=== PATIENT | female | born 1945 | race Caucasian/White ===

== ENCOUNTER 2024-05-09 14:12 | Outpatient (CLI) | payer MEDICARE, MEDICAID, SELFPAY ==
--- NOTE | 2024-05-09 14:16 | CT_ITS ---
FINAL REPORT TECHNIQUE: Axial images through the chest were performed by computed tomography. This study was performed with techniques to keep radiation doses as low as reasonably achievable, (ALARA). Individualized dose reduction techniques using automated exposure control or adjustment of mA and/or kV according to the patient's size were employed. CLINICAL HISTORY: pulmonary nodule COMPARISON: None FINDINGS: CT CHEST: Small mediastinal lymph nodes are noted, not enlarged by size. There are dense coronary artery calcifications present. There are 2 calcified granulomas present in the right lower lobe. Linear scar is present in the medial right middle lobe. There are several tiny 2 mm nodules in the anterior right middle lobe, which by Fleischner's criteria if the patient is at high risk, a 1 year follow-up is suggested. There is 25 degrees of thoracic scoliosis convex to the patient's right. No pleural or pericardial effusions are noted. Views of the upper abdomen are unremarkable. IMPRESSION: Several tiny 2 mm nodules in the anterior right middle lobe, by Fleischner's criteria if the patient is at high risk, a 1 year follow-up CT is suggested. Dense coronary artery calcifications. Reviewed, Interpreted and Dictated by Angel Coles MD Transcribed by Kamla Shaw Authenticated and [facility]
== END 2024-05-09 23:59 | disposition home or self-care (01) ==
LOC: RAD 14:14
PROVIDERS: PCP Family Medicine; Visit Provider Family Medicine
DX: R91.1 Solitary pulmonary nodule (principal)
CPT/HCPCS: 71250

== ENCOUNTER 2024-05-13 10:03 | Observation (INO) | payer MEDICARE, MEDICAID, SELFPAY ==
[2024-05-13] VITALS (9 sets, daily range): BP systolic 113–155; BP diastolic 46–73; PULSE 54–70; RESP 16–20; TEMP 36.4–37.1; O2SAT 97–100; BMI 24.6
--- NOTE | 2024-05-13 10:12 | CT_ITS ---
PROCEDURE INFORMATION: Exam: CT Cervical Spine Without Contrast Exam date and time: 05/13/2024 11:28 AM Age: 78 years old Clinical indication: Injury or trauma; Fall; Blunt trauma; Additional info: Possible fall/trauma TECHNIQUE: Imaging protocol: Computed tomography of the cervical spine without contrast. Radiation optimization: All CT scans at this facility use at least one of these dose optimization techniques: automated exposure control; mA and/or kV adjustment per patient size (includes targeted exams where dose is matched to clinical indication); or iterative reconstruction. COMPARISON: CT HEAD/BRAIN WO CON 05/13/2024 11:28 AM FINDINGS: Bones/joints: No acute fracture. There is partial straightening of cervical lordosis. There is grade 1 anterolisthesis of C4 on C5 and C7 on T1. There is multilevel advanced degenerative disc disease. There is multilevel spinal canal stenosis most notable at C5-C6 where there is moderate stenosis secondary to disc osteophyte ridging. Lungs: Lung apices are normal. Soft tissues: Unremarkable. IMPRESSION: No acute findings.
--- NOTE | 2024-05-13 10:12 | CT_ITS ---
PROCEDURE INFORMATION: Exam: CT Head Without Contrast Exam date and time: 05/13/2024 11:28 AM Age: 78 years old Clinical indication: Altered mental status/memory loss; Additional info: AMS TECHNIQUE: Imaging protocol: Computed tomography of the head without contrast. Radiation optimization: All CT scans at this facility use at least one of these dose optimization techniques: automated exposure control; mA and/or kV adjustment per patient size (includes targeted exams where dose is matched to clinical indication); or iterative reconstruction. COMPARISON: CT CERVICAL SPINE WO CON 05/13/2024 11:28 AM FINDINGS: Brain: There is diffuse cortical atrophy with disproportionate temporal lobe atrophy. There is mild to moderate small vessel disease. There is no evidence of acute parenchymal hemorrhage, extra-axial collection, or acute infarction. There is no mass effect, midline shift, or downward herniation. Cerebral ventricles: No ventriculomegaly. Paranasal sinuses: Visualized sinuses are unremarkable. No fluid levels. Mastoid air cells: Visualized mastoid air cells are well aerated. Bones: Unremarkable. No acute fracture. Soft tissues: Unremarkable. IMPRESSION: 1. No evidence of acute intracranial process. 2. Ausc-ur-gssbcaox small vessel disease. 3. Disproportionate temporal lobe atrophy.
--- NOTE | 2024-05-13 10:13 | XR_ITS ---
PROCEDURE INFORMATION: Exam: XR Chest Exam date and time: 05/13/2024 11:12 AM Age: 78 years old Clinical indication: Dyspnea TECHNIQUE: Imaging protocol: Radiologic exam of the chest. Views: 1 view. COMPARISON: CT CHEST WO CON 05/09/2024 2:17 PM FINDINGS: Lungs: Calcified granuloma in the right lower lobe, seen to better advantage on previous CT chest. No focal consolidation. Pleural spaces: Unremarkable. No pleural effusion. No pneumothorax. Heart/Mediastinum: Unremarkable. No cardiomegaly. Bones/joints: Unremarkable. IMPRESSION: No acute findings.
[2024-05-13 10:23] LABS: Basophils # 0.1 K/mm3 (0-0.2); Basophils % 1.1 % (0.1-2.0); Eosinophils # 0.1 K/mm3 (0.0-0.4); Hematocrit 43.5 % (37.0-47.0); Lymphocytes # 1.1 K/mm3 (0.7-4.5); Lymphocytes % 23.5 % (10-50); Mean Corpuscular HGB Conc 34.6 g/dL (31.8-35.4); Mean Corpuscular Hemoglobin 30.7 pg (27.0-31.2); Mean Corpuscular Volume 88.7 fl (81-99); Monocytes # 0.4 K/mm3 (0.1-1.0); Monocytes % 7.5 % (1.7-9.3); Neutrophils # 3.1 K/mm3 (1.8-7.8); Platelet Count 126 K/mm3 (142-424); Red Blood Count 4.91 M/mm3 (4.20-5.40); Red Cell Distribution Width 13.2 % (11.5-17.5); White Blood Count 4.7 K/mm3 (4.8-10.8)
--- NOTE | 2024-05-13 10:23 | ED_ITS ---
Discharge Plan Disposition Patient Disposition: Admitted Clinical Impressions Clinical Impression: Acute encephalopathy Discharge ED Provider: Pernell Monge General Adult HPI General Chief complaint: Altered Mental Status Stated complaint: fall Time Seen by Provider: 05/13/24 10:05 History of Present Illness HPI narrative: Patient is a 78-year-old female presenting today from [facility] for altered mental status and being found down. No definitive fall that we are aware of no definitive evidence of trauma from historical standpoint. From a EMS they [facility] that the [facility] stated that she recently was started on Ativan but we do not know exactly how much or when this was initiated. 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 No other symptoms were reported from EMS and history is otherwise significant limited secondary to patient's altered mental status. Related Data Home Medications ?Medication ?Instructions ?Recorded ?Confirmed acetaminophen 325 mg tablet 650 mg PO Q6HP PRN Mild Pain 05/13/24 05/13/24 (Scale Score 1-4) aspirin 325 mg tablet 325 mg PO DAILY 05/13/24 05/13/24 ergocalciferol (vitamin D2) 1,250 1,250 mcg PO TU 05/13/24 05/13/24 mcg (50,000 unit) capsule levothyroxine 50 mcg tablet 50 mcg PO DAILYDM 05/13/24 05/13/24 lorazepam 1 mg tablet 1 mg PO DAILY 05/13/24 05/13/24 ondansetron 4 mg disintegrating 4 mg PO Q6HP PRN Nausea And 05/13/24 05/13/24 tablet Vomiting quetiapine 100 mg tablet (Seroquel) 100 mg PO HS 05/13/24 05/13/24 quetiapine 25 mg tablet 25 mg PO DAILY 05/13/24 05/13/24 quetiapine 50 mg tablet (Seroquel) 50 mg PO 1400 05/13/24 05/13/24 sennosides 8.6 mg tablet (Senna 17.2 mg PO HSP PRN constipation 05/13/24 05/13/24 Laxative) Previous Rx's ?Medication ?Instructions ?Recorded amlodipine 10 mg tablet 10 mg PO DAILY #90 tabs 03/22/24 donepezil 10 mg tablet 10 mg PO HS #90 tabs 03/22/24 escitalopram oxalate 10 mg tablet 10 mg PO DAILY #90 tabs 03/22/24 (Lexapro) memantine 5 mg tablet 5 mg PO HS #90 tabs 03/22/24 Allergies Allergy/AdvReac Type Severity Reaction Status Date / Time Penicillins Allergy Unknown Verified 04/25/24 12:[address] [facility] Disclaimer: The information contained in this section may have been updated after the patient was seen, as this information can be updated by other users. Medical History Localized swelling, mass and lump, left lower limb Gastro-esophageal reflux disease without esophagitis Depression Anxiety Chronic hepatitis C Alzheimer disease Hyperparathyroidism Vitamin D deficiency Edentulous Dementia Coronary artery disease History of tobacco use Hypertension Hypothyroid Hypercalcemia Pulmonary nodule 1 cm or greater in diameter Surgical History Presence of coronary angioplasty implant and graft History of coronary artery stent placement History of tonsillectomy History of delivery History of cholecystectomy Social History (Updated 05/13/24 @ 13:34 by Germania Betancur, RN) Smoking Status: Former smoker alcohol intake: former current occupational status: unemployed Other Medical History Have you received the Pneumonia Vaccine: No ROS Obtained: Yes All systems reviewed & no additional complaints except as documented Physical Exam General General appearance: lethargic Head Head exam: atraumatic (Scalp cysts that do not appear to be hematomas no evidence of ecchymosis or definitive trauma to the head) Neck Neck exam: Present other (She is in a c-collar but no definitive evidence of trauma) Chest Chest inspection: Present normal inspection; Absent symmetric chest wall rise Respiratory Respiratory exam: Present normal lung sounds bilaterally; Absent respiratory distress Cardiovascular Cardiovascular exam: Present regular rate and normal rhythm Abdominal Exam Abdominal exam: Present soft; Absent distention Neurological Exam Neurological exam: Present other (GCS of 13 she is altered and confused with eyes closed but she is moving all extremities and is nonfocal) Medical Decision Making Medical Records Screening: Per USPSTF and CDC recommendations, given the prevalence of disease in our region, it is our hospital?s policy to screen for HIV and viral Hepatitis for all patients aged 18 and over and those with ongoing risk factors. Reynaldo Inquiry Pt receiving controlled substance: No Vital Signs: 05/13/24 10:08 05/13/24 10:19 05/13/24 10:25 Temperature 97.6 F Temperature Source Oral Pulse Rate 54 L 64 Pulse Rate [Right Radial] 57 L Respiratory Rate 18 Blood Pressure 115/57 L 131/73 Blood Pressure [Right Arm] 115/57 L Blood Pressure Mean [Right Arm] 76 02 Sat by Pulse Oximetry 99 99 98 Oxygen Delivery Method Room Air Room Air 05/13/24 11:33 05/13/24 13:00 05/13/24 13:12 Temperature 98.3 F Temperature Source Pulse Rate 56 L 60 Pulse Rate [Right Radial] Respiratory Rate 18 Blood Pressure 114/64 155/59 H Blood Pressure [Right Arm] Blood Pressure Mean [Right Arm] 02 Sat by Pulse Oximetry 97 Oxygen Delivery Method Room Air Room Air Lab Data Lab Results 05/13/24 10:12: WBC 4.7 L, RBC 4.91, Hgb 15.0, Hct 43.5, MCV 88.7, MCH 30.7, MCHC 34.6, RDW 13.2, Plt Count 126 L, MPV 9.0, Neut % (Auto) 66.0, Lymph % (Auto) 23.5, [place] % (Auto) 7.5, Eos % (Auto) 2.0, Baso % (Auto) 1.1, Neut # (Auto) 3.1, Lymph # (Auto) 1.1, [place] # (Auto) 0.4, Eos # (Auto) 0.1, Baso # (Auto) 0.1, Sodium 143, Potassium 4.1, Chloride 111 H, Carbon Dioxide 23, Anion Gap 13.1, BUN 18 H, Creatinine 0.90, Estimated Creat Clear 59, Estimated GFR 61, Est GFR ( Amer) 73, Glucose 92, Calcium 11.2 H, Total Bilirubin 1.2, AST 35, ALT 20, Alkaline Phosphatase 133 H, Troponin I < 0.01, Total Protein 7.2, Albumin 4.0, Globulin 3.2, Albumin/Globulin Ratio 1.3 05/13/24 10:17: VBG pH 7.34, VBG pCO2 41.3, VBG pO2 56.8 H, VBG HCO3 21.8 L, VBG Total CO2 23.0, VBG O2 Saturation 88.1 H, VBG Base Excess -4.0 L, VBG Lactic Acid 1.9 05/13/24 10:20: Ammonia 12, Urine Color Yellow, Urine Appearance Clear, Urine pH 6.0, Ur Specific [place] >= 1.030, Urine Protein Negative, Urine Glucose (UA) Negative, Urine Ketones Negative, Urine Blood Negative, Urine Nitrate Negative, Urine Bilirubin Negative, Urine Urobilinogen 0.2, Ur Leukocyte Esterase Negative, Urine RBC None, Urine WBC Occasional, Ur Squamous Epith Cells 3-5, Urine Bacteria Trace, Urine Opiates Screen Negative, Urine Methadone Screen Negative, Ur Barbituates Screen Negative, Ur Phencyclidine Scrn Negative, Ur Amphetamines Screen Negative, U Benzodiazepines Scrn Negative, Urine Cocaine Screen Negative, U Marijuana (THC) Screen Negative 05/13/24 10:12 05/13/24 10:12 Orders (Tests/Meds): ORDERS Category Date Time Status CT cervical spine wo con Stat Cat Scan 05/13/24 10:[address] head/brain wo con Stat Cat Scan 05/13/24 10:12 Completed CXR --portable [XR chest portable] Stat Exams 05/13/24 10:13 Completed Ammonia Stat Lab 05/13/24 10:20 Completed CBC w/Auto Diff [Complete Blood Count Auto Diff] Stat Lab 05/13/24 10:12 Completed CMP [Comprehensive Metabolic Panel] Stat Lab 05/13/24 10:12 Completed Complete Blood Count Auto Diff AMLAB Lab 05/14/24 06:00 Ordered Comprehensive Metabolic Panel AMLAB Lab 05/14/24 06:00 Ordered Magnesium AMLAB Lab 05/14/24 06:00 Ordered Trop I [Troponin I] Stat Lab 05/13/24 10:12 Completed Troponin I Q3H Lab 05/13/24 14:00 Received Troponin I Q3H Lab 05/13/24 16:15 Ordered UA [Urinalysis and Microscopic] Stat Lab 05/13/24 10:20 Completed UDS [Drug Screen,Urine] Stat Lab 05/13/24 10:20 Completed Venous Blood Gas Stat RT 05/13/24 10:17 Completed Medical Decision Narrative: 78-year-old with acute encephalopathy most likely from historical standpoint secondary to recent initiation of Ativan but this will be diagnosis of exclusion. Other etiologies on the differential would include trauma, stroke, metabolic abnormalities, infections etc. Broad workup has been initiated anticipate admission given her acute alteration in mental status and will reassess. Reassessment CT imaging performed I personally interpreted which showed no acute abnormalities. Chest x-ray performed which I personally interpreted shows no acute abnormalities. Labs otherwise unremarkable. Serial neurologic exams patient is waking up is much more alert still confused her brother is at the bedside who agrees that she is still altered. He believes and his family believes that she has been overmedicated which is likely the cause of her symptoms today I agree. Nonetheless she will need to be admitted until her mental status improves and medications can be changed. I spoke with Dr. Carrero who agrees to admit this patient for further evaluation and management. Critical Care Critical Care Time Critical Care Time: Yes Attestation: On 05/13/24, the high probability of a clinically significant, sudden or life threatening deterioration of the following system(s) required my full and direct attention, intervention and personal management. The time I documented below is in addition to time spent performing reported procedures but includes the following listed in this critical care notation. Total Time Total Critical Care Time: 35
[2024-05-13 10:24] LABS: Lactate Venous 1.9 mmol/L (0.4-2.0); VBG HCO3 21.8 mmol/L (23-30); VBG Oxygen Saturation 88.1 % (50-70); VBG PCO2 41.3 mmol/L (35-51); VBG PH 7.34 mmol/L (7.31-7.41); VBG PO2 56.8 mmol/L (28-40)
--- NOTE | 2024-05-13 10:24 | ECG_ITS ---
APPROVED REPORT Exam: Resting ECG HR:56 bpm ECG Measurements Heart Rate 56 AXES MI 165 P 62 QRSd 128 QRS 43 QT 432 T -27 QTc 422 Conclusion SINUS BRADYCARDIA RIGHT BUNDLE BRANCH BLOCK [120+ ms QRS DURATION, UPRIGHT V1, 40+ ms S IN I/aVL/V4/V5/V6] MARKED T-WAVE ABNORMALITY, CONSIDER ANTEROLATERAL ISCHEMIA [-0.5+ mV T-WAVE IN I/aVL/V3-V6] MODERATE T-WAVE ABNORMALITY, CONSIDER INFERIOR ISCHEMIA [-0.1+ mV T-WAVE IN II/aVF] ABNORMAL ECG UNCONFIRMED REPORT Electronically signed by : Eloy Monge, 05/13/2024 14:58:00
[2024-05-13 10:28] LABS: Microscopic, Urine URINE MICROSCOPIC (MICROSCOPIC)
[2024-05-13 10:33] LABS: Alanine Aminotransferase 20 U/L (12-78); Albumin/Globulin Ratio 1.3 (1.1-1.8); Alkaline Phosphatase 133 U/L (38-126); Bilirubin,Total 1.2 mg/dl (0.2-1.3); Blood Urea Nitrogen 18 mg/dl (7-17); Creatinine Clearance Estimated 59 mL/min (50-200); Estimated Glomerular Filt Rate 61 ml/min (>60); GFR (African American) 73 ML/MIN (>60); Globulin 3.2 g/dL (1.3-3.2); Total Protein,Serum 7.2 g/dl (6.3-8.2)
[2024-05-13 10:39] LABS: Appearance,Urine CLEAR (Clear); Bilirubin,Urine Negative (Negative); Blood, Urine Negative (Negative); Color,Urine YELLOW (Yellow); Glucose,Urine (UA) Negative (Negative); Ketones,Urine Negative (Negative); Leukocyte Esterase,Urine Negative (Negative); Nitrate,Urine Negative (Negative); Protein,Urine Negative (Negative); Specific Gravity, Urine >= 1.030 (1.005-1.030); Urobilinogen,Urine 0.2 EU/dl (0.2)
[2024-05-13 10:47] LABS: Troponin I < 0.01 ng/ml (0.00-0.034)
[2024-05-13 11:09] LABS: Bacteria,Urine Trace /lpf; WBC,Urine Occasional #/hpf (0-3)
[2024-05-13 11:18] LABS: Anion Gap 13.1 mEq/L (5-15); Aspartate Amino Transferase 35 U/L (14-36); Calcium 11.2 mg/dl (8.4-10.2); Carbon Dioxide 23 mmol/L (22.0-30.0); Chloride 111 mmol/L (98-107); Glucose 92 mg/dl (74-100); Potassium 4.1 mmoL/L (3.5-5.1); Sodium 143 mmol/L (136-145)
[2024-05-13 11:37] LABS: Ammonia 12 umol/L (9-30)
--- NOTE | 2024-05-13 11:41 | EXP.HP ---
History of Present Illness *Admission Date: 05/13/24 *Reason for visit:: Confusion *History of present illness: Ms. Chrissy joe is a 78-year-old female with progressive dementia over the past 5 years. She resides at [facility]. She presented via EMS due to concern for increased falls, and altered mental status. Has fallen multiple times in the past 2 to 3 days. Presents with her brother who helps give history. Patient's medications were recently adjusted with initiation of Ativan. Patient is hemodynamically stable. Workup with nonactionable labs. Patient unfortunately significantly confused and unsteady on her feet. Medicine was consulted for admission and evaluation by therapy. On arrival to the floor, patient is alert, knows her name. Does not know date of , time, place. Nonsensical responses to questions. Answers rambling. Does not know her brother's name. Pleasantly confused. Brother states she has been having worsening symptoms since initiation of patient's Ativan. No nausea, vomiting, shortness of breath, cough, fever, syncope. Patient normally ambulatory, feeds herself, needs help with ADLs but is functional. Has had increased urinary incontinence. [facility] Disclaimer: The information contained in this section may have been updated after the patient was seen, as this information can be updated by other users. Medical History Localized swelling, mass and lump, left lower limb Gastro-esophageal reflux disease without esophagitis Depression Anxiety Chronic hepatitis C Alzheimer disease Hyperparathyroidism Vitamin D deficiency Edentulous Dementia Coronary artery disease History of tobacco use Hypertension Hypothyroid Hypercalcemia Pulmonary nodule 1 cm or greater in diameter Surgical History Presence of coronary angioplasty implant and graft History of coronary artery stent placement History of tonsillectomy History of delivery History of cholecystectomy Social History Smoking Status: Former smoker alcohol intake: former current occupational status: unemployed Travel in the last 8 weeks: None Other Medical History Have you received the Pneumonia Vaccine: No Review of Systems Review of Systems Review of systems (narrative): Obtained from brother. Unable to obtain from patient Meds Home Medications and Allergies Home Medications ?Medication ?Instructions ?Recorded ?Confirmed ?Type amlodipine 10 mg tablet 10 mg PO DAILY #90 tabs 03/22/24 05/13/24 Rx donepezil 10 mg tablet 10 mg PO HS #90 tabs 03/22/24 05/13/24 Rx escitalopram oxalate 10 mg tablet 10 mg PO DAILY #90 tabs 03/22/24 05/13/24 Rx (Lexapro) memantine 5 mg tablet 5 mg PO HS #90 tabs 03/22/24 05/13/24 Rx acetaminophen 325 mg tablet 650 mg PO Q6HP PRN Mild Pain 05/13/24 05/13/24 History (Scale Score 1-4) aspirin 325 mg tablet 325 mg PO DAILY 05/13/24 05/13/24 History ergocalciferol (vitamin D2) 1,250 1,250 mcg PO TU 05/13/24 05/13/24 History mcg (50,000 unit) capsule levothyroxine 50 mcg tablet 50 mcg PO DAILYDM 05/13/24 05/13/24 History lorazepam 1 mg tablet 1 mg PO DAILY 05/13/24 05/13/24 History ondansetron 4 mg disintegrating 4 mg PO Q6HP PRN Nausea And 05/13/24 05/13/24 History tablet Vomiting quetiapine 100 mg tablet (Seroquel) 100 mg PO HS 05/13/24 05/13/24 History quetiapine 25 mg tablet 25 mg PO DAILY 05/13/24 05/13/24 History quetiapine 50 mg tablet (Seroquel) 50 mg PO 1400 05/13/24 05/13/24 History sennosides 8.6 mg tablet (Senna 17.2 mg PO HSP PRN constipation 05/13/24 05/13/24 History Laxative) New Prescriptions to Start Prescriptions: Allergies Allergy/AdvReac Type Severity Reaction Status Date / Time Penicillins Allergy Unknown Verified 04/25/24 12:35 Exam Data for Last 24 hours Vital signs and Labs for Last 24 Hours: Temp Pulse Resp BP Pulse Ox O2 Del Method 97.6 F 64 18 131/73 98 Room Air 05/13/24 10:19 05/13/24 10:25 05/13/24 10:19 05/13/24 10:25 05/13/24 10:25 05/13/24 10:25 Laboratory Results - last 24 hr 05/13/24 10:12: WBC 4.7 L, RBC 4.91, Hgb 15.0, Hct 43.5, MCV 88.7, MCH 30.7, MCHC 34.6, RDW 13.2, Plt Count 126 L, MPV 9.0, Neut % (Auto) 66.0, Lymph % (Auto) 23.5, [place] % (Auto) 7.5, Eos % (Auto) 2.0, Baso % (Auto) 1.1, Neut # (Auto) 3.1, Lymph # (Auto) 1.1, [place] # (Auto) 0.4, Eos # (Auto) 0.1, Baso # (Auto) 0.1, Sodium 143, Potassium 4.1, Chloride 111 H, Carbon Dioxide 23, Anion Gap 13.1, BUN 18 H, Creatinine 0.90, Estimated Creat Clear 59, Estimated GFR 61, Est GFR ( Amer) 73, Glucose 92, Calcium 11.2 H, Total Bilirubin 1.2, AST 35, ALT 20, Alkaline Phosphatase 133 H, Troponin I < 0.01, Total Protein 7.2, Albumin 4.0, Globulin 3.2, Albumin/Globulin Ratio 1.3 05/13/24 10:17: VBG pH 7.34, VBG pCO2 41.3, VBG pO2 56.8 H, VBG HCO3 21.8 L, VBG Total CO2 23.0, VBG O2 Saturation 88.1 H, VBG Base Excess -4.0 L, VBG Lactic Acid 1.9 05/13/24 10:20: Ammonia 12, Urine Color Yellow, Urine Appearance Clear, Urine pH 6.0, Ur Specific [place] >= 1.030, Urine Protein Negative, Urine Glucose (UA) Negative, Urine Ketones Negative, Urine Blood Negative, Urine Nitrate Negative, Urine Bilirubin Negative, Urine Urobilinogen 0.2, Ur Leukocyte Esterase Negative, Urine RBC None, Urine WBC Occasional, Ur Squamous Epith Cells 3-5, Urine Bacteria Trace I & O for Last 24 hours: Intake & Output 05/10/24 05/11/24 05/12/24 05/13/24 23:59 23:59 23:59 23:59 Weight 79.379 kg Constitutional Constitutional: no acute distress, average body habitus, chronically ill appearing and cooperative *Routine HEENT Exam Head: Present normocephalic Eye: Present EOMI and PERRL ENT: Present mucous membranes moist *Routine Neck Exam Neck: Present supple; Absent lymphadenopathy *Routine Respiratory Exam Respiratory: Present CTA bilaterally; Absent respiratory distress, rhonchi, wheezes or crackles *Routine Cardiovascular Exam Cardiovascular: Present RRR and murmur (Grade 2/6 systolic) *Routine Abdominal Exam Abdominal: Present soft and normoactive bowel sounds; Absent tenderness *Routine Rectal Exam Rectal:: deferred *Routine Genitalia Exam Genitalia:: deferred *Routine Extremities Exam Extremities: Absent cyanosis, clubbing or edema *Routine Skin Exam Skin: Present warm; Absent rash *Routine Neurological Exam Neurological: Present alert, altered mental status and moving all extremities Comments: Knows her name. Does not know date of , where she is, unable to answer questions. Answers tangential and nonsensical Assessment and Plan *Assessment and plan (1) Acute encephalopathy: Status: Acute Category: Medical Code(s): G93.40 - Encephalopathy, unspecified (2) Anxiety: Status: Acute Category: Medical Code(s): F41.9 - Anxiety disorder, unspecified (3) Alzheimer disease: Status: Acute Category: Medical Code(s): G30.9 - Alzheimer's disease, unspecified; F02.80 - Dementia in other diseases classified elsewhere, unspecified severity, without behavioral disturbance, psychotic disturbance, mood disturbance, and anxiety (4) Coronary artery disease: Status: Acute Category: Medical Code(s): I25.10 - Atherosclerotic heart disease of [place] coronary artery without angina pectoris (5) Hypertension: Status: Acute Category: Medical Code(s): I10 - Essential (primary) hypertension (6) Hypothyroid: Status: Acute Category: Medical Code(s): E03.9 - Hypothyroidism, unspecified Plan 78 female with progressive dementia who presents with what appears to be an acute worsening of her cognition/acute encephalopathy. Increased falling over the past few days. Family concern for toxic effect/side effect of medication. Discussed case with ER physician, workup in the ER with no acute findings but patient does appear altered. Unstable on her feet. Request admission for therapy evaluation and further management. I agreed to admit. Will hold sedating medication (Ativan). Repeat labs in the morning. Conservative management as follows: Acute toxic encephalopathy Alzheimer's dementia Hypercalcemia -Patient confused compared to baseline per family and nursing facility -Will hold lorazepam -Continue memantine 5 mg nightly, donepezil 10 mg nightly, Seroquel 100 mg nightly. -Therapy to evaluate in the morning due to falls -Further discussion in the morning pending patient's improvement with holding of altering medications. Discussed potential transfer to [facility] if patient continues to be confused or get worse. - On initial workup, white count 4.7, hemoglobin 15. VBG with normal pH and normal CO2. Electrolytes relatively normal with sodium 143, potassium 4.1, kidney function normal with BUN 18, creatinine 0.9. Calcium slightly elevated at 11.2. Ammonia normal at 12. Troponin negative. -Urine unremarkable with negative finding of leuk esterase and nitrite. - UDS negative. -Will administer 500 cc of LR over 2 hours for hypercalcemia, repeat calcium level ordered for the morning along with CBC, CMP, magnesium. TSH pending Continue levothyroxine 50 mcg daily for hypothyroid Continue Lexapro 10 mg daily for anxiety Continue amlodipine 10 mg daily for hypertension Regular diet Full code Aspirin 325 mg daily
[2024-05-13 11:43] LABS: Amphetamine/Metha Screen,Urine Negative ng/ml (<1000)
[2024-05-13 11:44] LABS: Barbiturates Screen,Urine Negative ng/ml (<200); Benzodiazepines Screen,Urine Negative ng/ml (<200)
[2024-05-13 11:45] LABS: Opiate Screen,Urine Negative ng/ml (<300)
[2024-05-13 11:46] LABS: Phencyclidine Screen,Urine Negative ng/ml (<25)
[2024-05-13 11:47] LABS: Cannabinoid Screen,Urine Negative ng/ml (<50)
[2024-05-13 11:48] LABS: Cocaine Screen,Urine Negative ng/ml (<300); Methadone Screen,Urine Negative ng/ml (<300)
--- NOTE | 2024-05-13 11:48 | PC.NURSE ---
I notified of the need for a bed for admission.
--- NOTE | 2024-05-13 12:09 | PC.NURSE ---
report called to Leann
--- NOTE | 2024-05-13 13:00 | PC.NURSE ---
arrived by stretcher from ED
--- NOTE | 2024-05-13 13:17 | P.CONPHA_ITS ---
Pharmacy Intervention Comments: MEDICATION RECONCILIATION COMPLETE USING MAR FROM [facility].
--- NOTE | 2024-05-13 13:17 | HMH.PHAINT1 ---
Pharmacy Intervention Comments: MEDICATION RECONCILIATION COMPLETE USING MAR FROM [facility].
[2024-05-13 14:54] LABS: Troponin I < 0.01 ng/ml (0.00-0.034)
--- NOTE | 2024-05-13 14:58 | PC.NURSE ---
updated pt contact list
[2024-05-13 16:55] LABS: Troponin I < 0.01 ng/ml (0.00-0.034)
[2024-05-13] MEDS: LACTATED RINGERS 1000ML 500 ML 250 ML IV (17:45)
--- NOTE | 2024-05-13 18:26 | HMH.PTEV ---
Physical Therapy Evaluation Rehab PT IP Evaluation Start: 05/13/24 11:39 Freq: ONCE Status: Active Protocol: Document 05/13/24 18:09 BRYNN (Rec: 05/13/24 18:25 BRYNN [id number]) Subjective/History History History Per H&P: Ms. Chrissy joe is a 78-year-old female with progressive dementia over the past 5 years. She resides at [facility]. She presented via EMS due to concern for increased falls, and altered mental status. Has fallen multiple times in the past 2 to 3 days. Presents with her brother who helps give history. Patient's medications were recently adjusted with initiation of Ativan. Patient is hemodynamically stable. Workup with nonactionable labs. Patient unfortunately significantly confused and unsteady on her feet. Medicine was consulted for admission and evaluation by therapy. On arrival to the floor, patient is alert, knows her name. Does not know date of , time, place. Nonsensical responses to questions. Answers rambling. Does not know her brother's name. Pleasantly confused. Brother states she has been having worsening symptoms since initiation of patient's Ativan. No nausea, vomiting, shortness of breath, cough, fever, syncope. Patient normally ambulatory, feeds herself, needs help with ADLs but is functional. Has had increased urinary incontinence. Subjective Subjective Pt confused and rocking her baby (rolled up towel) with nursing sitters upon arrival. Pt unable to answer history questions. Pt is from [facility] per H&P. New diagnosis of cancer in past 12 No months? Rehab PT IP Eval Objective Appearance Patient Behavior Wandering,Confused Difficulty following instructions moderate Ambulation Patient Able to Ambulate Yes Ambulation Observation IP General Gait Pattern Observation No Deviations/Normal Ambulation Distance (feet) 20 Ambulation Assistive Device None Ambulation Ability Supervision/Stand by,Contact Guard/Hand Hold Balance Ability to Arise Able, uses arms to help Sitting Balance Steady, safe Standing Balance Unsteady Dynamic Sitting Balance Ability Good Dynamic Standing Balance Ability Fair Transfers Bed Transfer Ability Independent Sit to Stand Bed Transfer Ability Supervision/Stand by Sit to Stand Chair Transfer Ability Supervision/Stand by Rehab PT IP prob,goals,plan Problems Date of Evaluation: 05/13/24 PT IP Problems Gait,Balance,Self care,Safety Rehab Potential Rehab Potential Fair Plan Other Intervention Plan 1-2 times PT Plan Frequency Daily Duration LOS Discharge Goals Bed Transfer Ability Independent Sit to Stand Chair Transfer Ability Independent Ambulation Assistive Device Rolling Walker Ambulation Distance (feet) 30 Discharge Plan PT Discharge Plan Pt was confused and unable to follow simple commands at times. Pt became agitated with request to return to bed. Pt was able to demo ambulation with CGA d/t balance impairments. Pt most appropriate to return to [place] and receive rehab. Rehab needed d/t poor balance and recent falls. Pt would benefit from skilled acute care PT to prevent further decline and educate on safety. Prognosis to meet rehab goals is fair d/t altered mental status at this time. Eval Complexity Eval Charge Codes 48313 - Moderate Complexity PHYSICIAN CERTIFICATION: I certify the specified therapy services for Jessica Chowdhury are required, authorized, and reviewed every 30 days.
--- NOTE | 2024-05-13 18:32 | PC.NURSE ---
pt has been very impulsive since coming to the floor. brother was at bs the first few hrs, pt done well and rested some. later in the shift pt kept trying to get out of bed. pt likes to sing/music and speaking softly works best, also likes grape juice. someone needs to be with pt at all time for pt safety due to unsteady on feet. pt has been waxing and weaning with agitation the last few hrs, dr johnson is currently at bs due to pt agitation and attempting to be combative toward staff, throwing objects in room and repeatedly slamming the closet door and dresser drawer. pt is calm at the moment speaking with alex. she is watching tv, drinking juice with staff at bs. no needs or concerns at this time.
[2024-05-13] MEDS: QUETIAPINE 100MG TABLET 100 MG PO (19:48)
[2024-05-13] MEDS: MEMANTINE 10MG TABLET 5 MG PO (19:48)
[2024-05-13] MEDS: DONEPEZIL 10MG TAB 10 MG PO (20:05)
[2024-05-13] MEDS: HALOPERIDOL LACTATE 5 MG/ML VIAL IM (21:39)
--- NOTE | 2024-05-13 22:35 | PC.NURSE ---
Pt became agitated and started to get out of bed. Staff tried to redirected pt back to bed but pt began to scream and get combative. An order for Halodol was obtained and administered. She has since calmed down and is starting to fall asleep. 1:1 at this time.
[2024-05-14] VITALS: BP 104/54; PULSE 57; RESP 18; TEMP 36.9
[2024-05-14 04:00] VITALS: BP 139/69; PULSE 50; RESP 16; TEMP 36.9; O2SAT 93; BMI 25.0
[2024-05-14 06:17] LABS: Basophils % 1.1 % (0.1-2.0); Eosinophils # 0.1 K/mm3 (0.0-0.4); Eosinophils % 3.8 % (0.1-12.0); Hematocrit 38.6 % (37.0-47.0); Lymphocytes # 1.1 K/mm3 (0.7-4.5); Mean Corpuscular HGB Conc 34.6 g/dL (31.8-35.4); Mean Corpuscular Volume 89.6 fl (81-99); Mean Platelet Volume 9.2 fl (7.4-10.4); Monocytes # 0.3 K/mm3 (0.1-1.0); Monocytes % 9.9 % (1.7-9.3); Neutrophils # 1.5 K/mm3 (1.8-7.8); Neutrophils % 50.2 % (37.0-80.0); Platelet Count 94 K/mm3 (142-424); Red Blood Count 4.31 M/mm3 (4.20-5.40); Red Cell Distribution Width 12.8 % (11.5-17.5); White Blood Count 3.1 K/mm3 (4.8-10.8)
[2024-05-14 06:21] LABS: Albumin Level 3.3 g/dl (3.5-5.0); Chloride 113 mmol/L (98-107); Potassium 4.2 mmoL/L (3.5-5.1); Sodium 144 mmol/L (136-145)
[2024-05-14 06:24] LABS: Alanine Aminotransferase 15 U/L (12-78); Albumin/Globulin Ratio 1.2 (1.1-1.8); Alkaline Phosphatase 99 U/L (38-126); Anion Gap 6.2 mEq/L (5-15); Aspartate Amino Transferase 28 U/L (14-36); Blood Urea Nitrogen 17 mg/dl (7-17); Carbon Dioxide 29 mmol/L (22.0-30.0); Creatinine Clearance Estimated 49 mL/min (50-200); Estimated Glomerular Filt Rate 61 ml/min (>60); GFR (African American) 73 ML/MIN (>60); Globulin 2.8 g/dL (1.3-3.2); Total Protein,Serum 6.1 g/dl (6.3-8.2)
[2024-05-14 06:25] LABS: Glucose 92 mg/dl (74-100); Magnesium 2.1 mg/dl (1.6-2.3)
[2024-05-14 06:30] LABS: Hemoglobin 13.4 g/dL (12.2-16.2)
[2024-05-14 07:39] VITALS: BP 131/62; PULSE 58; RESP 19; TEMP 36.7; O2SAT 98
[2024-05-14 08:00] VITALS: BP 103/49; PULSE 63; RESP 22; TEMP 36.5; O2SAT 98
--- NOTE | 2024-05-14 08:03 | SW/DCPLANNER ---
Addendum entered by [facility] 05/14/24 16:51: Kanika montanez/ [facility] is still reviewing all patient information. Kanika phone: [phone] fax: [phone] or [phone] Addendum entered by [facility] 05/14/24 13:07: [facility] is unable to accept patient due to bed availability. I am waiting to hear back form [facility]. Addendum entered by [facility] 05/14/24 11:59: Patient information has also been faxed to [facility]. Addendum entered by [facility] 05/14/24 11:39: [facility] is unable to accept this patient due to abnormal labs (low platelets and WBC) and no bed available. I will make contact / [facility] for their Behavioral Health Unit. Addendum entered by [facility] 05/14/24 11:08: Updated patient information faxed to [facility]. Addendum entered by [facility] 05/14/24 08:27: Per MD request: patient information has been faxed to [facility] for [facility]. fax: [phone] Original Note: Patient currently resides at [facility] level of care. I will continue to follow up w/ Dulce at [facility] until patient is medically stable for discharge. Updated patient information has been faxed. Discharge date is unknown at this time.
[2024-05-14] MEDS: QUETIAPINE 25MG TABLET 25 MG PO (08:13)
[2024-05-14] MEDS: AMLODIPINE 10MG TABLET 10 MG PO (08:14)
[2024-05-14] MEDS: ASPIRIN 325MG TABLET 325 MG PO (08:14)
[2024-05-14] MEDS: CITALOPRAM 20MG TABLET 20 MG PO (08:14)
[2024-05-14] MEDS: LEVOTHYROXINE 50MCG (0.05MG) TAB 50 MCG PO (08:14)
--- NOTE | 2024-05-14 09:23 | HMH.OTEV ---
OT Inpatient Evaluation Rehab OT IP Evaluation Start: 05/13/24 11:39 Freq: ONCE Status: Active Protocol: Document 05/14/24 09:05 MARY (Rec: 05/14/24 09:23 [email or web address] [id number]) Rehab OT IP Assessment Subjective History Pt oriented to person. Pt able to give her birthday year . Pt was admitted on 05/13/24 due to AMS. History and physical: Ms. Chrissy joe is a 78-year- old female with progressive dementia over the past 5 years . She resides at [facility]. She presented via EMS due to concern for increased falls, and altered mental status. Has fallen multiple times in the past 2 to 3 days. Presents with her brother who helps give history . Patient's medications were recently adjusted with initiation of Ativan. Patient is hemodynamically stable. Workup with nonactionable labs . Patient unfortunately significantly confused and unsteady on her feet. Medicine was consulted for admission and evaluation by therapy. On arrival to the floor, patient is alert, knows her name. Does not know date of , time, place. Nonsensical responses to questions. Answers rambling. Does not know her brother's name. Pleasantly confused. Brother states she has been having worsening symptoms since initiation of patient's Ativan. No nausea, vomiting, shortness of breath, cough, fever, syncope. Patient normally ambulatory, feeds herself, needs help with ADLs but is functional. Has had increased urinary incontinence. Subjective I can do these things. Pt unable to provide much information about prior level of functioning due to continued confusion. However, pt claims she is normally able to dress herself. According to her history and physical reports, pt required assistance with ADLs. Pt was able to complete functional transfer of ~20 feet with cga/ min assist. Pt did have ~2 LOB, but demonstrated fair activity tolerance. She was able to doff and don both socks with minimal assistance with alignment. Objective Patient Orientation Person Right Upper Extremity Gross ROM WFL Left Upper Extremity Gross ROM WFL Transfer Training Sit/Stand Transfer Assist Level Minimal x 1 (25% assist) Chair Transfer Ability Minimal x 1 (25% assist) Chair Transfer Technique Sit to/from Ambulatory Lower Body Dressing Ability Minimal Assistance Rehab OT IP prob,goals,plan Problems Date of Evaluation: 05/14/24 OT IP Problems Bed Mobility,Transfers,Balance ,Self care,Safety Rehab Potential Rehab Potential Good Equipment Needs Assistive Devices Rolling / Wheeled Walker Plan OT intervention Plan Bed Mobility,Transfers,Balance ,Self care,Safety,Therapeutic Exercise OT Plan Frequency Daily Duration LOS Discharge Goals Bed Mobility Ability Standby Assistance Sit to Stand Chair Transfer Ability Contact Guard/Hand Hold Chair Transfer Ability Contact Guard/Hand Hold Chair Transfer Technique Sit to/from Ambulatory Chair Transfer Assistive Devices Rolling Walker Feeding Ability Assist with Tray Set Up Lower Body Dressing Ability Contact Guard Upper Body Dressing Ability Standby Assistance Bathing Ability Minimal Assistance,Moderate Assistance Performing Toilet Hygiene Ability Moderate Assistance Overall Commode/Toilet Transfer Ability Contact Guard Commode/Toilet Transfer Technique Sit to/from Ambulatory Commode/Toilet Transfer Assistive Grab Bars Devices Decrease in Endurance No Discharge Plan OT Discharge Plan Pt will continue to be seen for OT services while at [facility]. Pt can return to [facility] once she is medically stable per physician . Therapist recommends upon returning to [place], pt receive continued short term rehab. Continued skilled therapy is important in order for patient to improve strength, safety, endurance, ADL independence, and functional transfers to reach OF. Eval Complexity Eval Charge Codes 48831 - Moderate Complexity PHYSICIAN CERTIFICATION: I certify the specified therapy services for Jessica Chowdhury are required, authorized, and reviewed every 30 days.
--- NOTE | 2024-05-14 10:39 | EXP.ACUTE.PN ---
Subjective *Date: 05/14/24 *Time: 10:39 Interval history: Patient calm and interactive on rounds. Overnight unfortunately had significant sundowning and change in behavior. As the evening progressed after 6 PM, patient became more agitated and irritable. Was verbally aggressive with staff. Concerned that she was becoming a risk of harm to herself or others. Received her nighttime Seroquel 100 mg with no immediate benefit. Was additionally administered 5 mg of Haldol which she responded well to. Patient proceeded to sleep throughout the night with no further outbursts or aggression. Upon waking this morning, pleasant. Oriented to self. Knows her name and year of but does not know anything else. Does not know where she is at or why. Necessitated one-on-one sitter since time of admission. No physical restraints required throughout the night. Medical Exam Vital signs and Labs for Last 24 Hours: Vital Signs Temp Pulse Pulse Resp BP BP Pulse Ox 05/14/24 09:00 05/14/24 08:00 97.7 F 63 22 103/49 L 98 05/14/24 08:00 05/14/24 07:39 98.1 F 58 L 19 131/62 98 05/14/24 06:41 05/14/24 05:00 05/14/24 04:00 98.4 F 50 L 16 139/69 93 L 05/14/24 02:59 05/14/24 01:00 05/14/24 00:00 98.4 F 57 L 18 104/54 L 05/13/24 23:00 05/13/24 21:00 05/13/24 20:00 98.1 F 70 16 113/46 L 98 05/13/24 20:00 05/13/24 19:43 98.1 F 70 16 152/72 H 98 05/13/24 18:31 05/13/24 17:00 05/13/24 16:00 98.7 F 54 L 17 134/60 100 05/13/24 15:00 05/13/24 13:17 98.7 F 56 L 20 155/59 H 99 05/13/24 13:12 98.3 F 60 18 155/59 H 05/13/24 13:00 05/13/24 11:33 56 L 114/64 97 O2 Del Method 05/14/24 09:00 Room Air 05/14/24 08:00 Room Air 05/14/24 08:00 Room Air 05/14/24 07:39 Room Air 05/14/24 06:41 Room Air 05/14/24 05:00 Room Air 05/14/24 04:00 Room Air 05/14/24 02:59 Room Air 05/14/24 01:00 Room Air 05/14/24 00:00 05/13/24 23:00 Room Air 05/13/24 21:00 Room Air 05/13/24 20:00 Room Air 05/13/24 20:00 Room Air 05/13/24 19:43 Room Air 05/13/24 18:31 Room Air 05/13/24 17:00 Room Air 05/13/24 16:00 Room Air 05/13/24 15:00 Room Air 05/13/24 13:17 Room Air 05/13/24 13:12 05/13/24 13:00 Room Air 05/13/24 11:33 Room Air Intake and Output 05/13/24 05/14/24 05/14/24 23:59 07:59 15:59 Intake Total 80 / 620 200 / 480 280 / 480 Output Total 0 / 250 250 / 250 Balance 80 / 620 200 / 230 30 / 230 Intake: Intake, Oral Amount 80 / 620 200 / 480 280 / 480 Output: Output, Urine Amount 0 / 250 250 / 250 Other: Number of Voids 0 Number of Bowel Movements 1 Weight 66.451 kg Patient Weight 05/14/24 23:59 Weight 66.451 kg Laboratory Results - last 24 hr 05/13/24 10:12: Sodium 143, Potassium 4.1, Chloride 111 H, Carbon Dioxide 23, Anion Gap 13.1, BUN 18 H, Creatinine 0.90, Estimated Creat Clear 59, Estimated GFR 61, Est GFR ( Amer) 73, Glucose 92, Calcium 11.2 H, Total Bilirubin 1.2, AST 35, ALT 20, Alkaline Phosphatase 133 H, Troponin I < 0.01, Total Protein 7.2, Albumin 4.0, Globulin 3.2, Albumin/Globulin Ratio 1.3 05/13/24 10:20: Ammonia 12, Urine Color Yellow, Urine Appearance Clear, Urine pH 6.0, Ur Specific [place] >= 1.030, Urine Protein Negative, Urine Glucose (UA) Negative, Urine Ketones Negative, Urine Blood Negative, Urine Nitrate Negative, Urine Bilirubin Negative, Urine Urobilinogen 0.2, Ur Leukocyte Esterase Negative, Urine RBC None, Urine WBC Occasional, Ur Squamous Epith Cells 3-5, Urine Bacteria Trace, Urine Opiates Screen Negative, Urine Methadone Screen Negative, Ur Barbituates Screen Negative, Ur Phencyclidine Scrn Negative, Ur Amphetamines Screen Negative, U Benzodiazepines Scrn Negative, Urine Cocaine Screen Negative, U Marijuana (THC) Screen Negative 05/13/24 14:00: Troponin I < 0.01 05/13/24 16:15: Troponin I < 0.01 05/14/24 05:52: WBC 3.1 L D, RBC 4.31, Hgb 13.4 D, Hct 38.6, MCV 89.6, MCH 31.0, MCHC 34.6, RDW 12.8, Plt Count 94 L D, MPV 9.2, Neut % (Auto) 50.2, Lymph % (Auto) 35.0, [place] % (Auto) 9.9 H, Eos % (Auto) 3.8, Baso % (Auto) 1.1, Neut # (Auto) 1.5 L, Lymph # (Auto) 1.1, [place] # (Auto) 0.3, Eos # (Auto) 0.1, Baso # (Auto) 0.0, Sodium 144, Potassium 4.2, Chloride 113 H, Carbon Dioxide 29, Anion Gap 6.2, BUN 17, Creatinine 0.90, Estimated Creat Clear 49, Estimated GFR 61, Est GFR ( Amer) 73, Glucose 92, Calcium 11.0 H, Magnesium 2.1, Total Bilirubin 1.0, AST 28, ALT 15, Alkaline Phosphatase 99, Total Protein 6.1 L, Albumin 3.3 L D, Globulin 2.8, Albumin/Globulin Ratio 1.2, TSH 0.40 L I & O for Labs for Last 24 Hours: Intake & Output 05/11/24 05/12/24 05/13/24 05/14/24 23:59 23:59 23:59 23:59 Intake Total 420 / 620 480 / 480 Output Total 250 / 250 Balance 420 / 620 230 / 230 Weight 65.402 kg 66.451 kg Constitutional: Present no acute distress, average body habitus, chronically ill appearing and cooperative Head: Present atraumatic and normocephalic ENT: Present normal exam Respiratory: Present normal respiratory effort; Absent rhonchi, wheezes or crackles Cardiac: Present Reg Rate and Rhythm GI: Present soft and normal bowel sounds; Absent distention or tenderness Extremities: Present normal inspection and full ROM Skin: Present intact; Absent erythema Neuro: Present Grossly Intact, alert, awake and moves all extremities Comment:: Oriented to name. Disoriented to location, situation Assessment and Plan *Assessment and plan (1) Dementia with behavioral disturbance: Status: Acute Category: Medical Code(s): F03.918 - Unspecified dementia, unspecified severity, with other behavioral disturbance (2) Acute encephalopathy: Status: Acute Category: Medical Code(s): G93.40 - Encephalopathy, unspecified (3) Anxiety: Status: Acute Category: Medical Code(s): F41.9 - Anxiety disorder, unspecified (4) Alzheimer disease: Status: Acute Category: Medical Code(s): G30.9 - Alzheimer's disease, unspecified; F02.80 - Dementia in other diseases classified elsewhere, unspecified severity, without behavioral disturbance, psychotic disturbance, mood disturbance, and anxiety (5) Coronary artery disease: Status: Acute Category: Medical Code(s): I25.10 - Atherosclerotic heart disease of [place] coronary artery without angina pectoris (6) Hypertension: Status: Acute Category: Medical Code(s): I10 - Essential (primary) hypertension (7) Hypothyroid: Status: Acute Category: Medical Code(s): E03.9 - Hypothyroidism, unspecified Plan 78 female with progressive dementia who presents with what appears to be an acute worsening of her cognition/acute encephalopathy. Increased falling over the past few days. Family concern for toxic effect/side effect of medication. Discussed case with ER physician, workup in the ER with no acute findings but patient does appear altered. Unstable on her feet. Request admission for therapy evaluation and further management. I agreed to admit. Initially held her Ativan and Seroquel. Patient improved with her mobility. Has independently mobile at this time. Had sundowning episode overnight with increased agitation and aggression. Responded to resumption of Seroquel and one-time dose of Haldol. Improved interactions this morning. Pleasant and cooperative. Strong concern for dementia with behavioral disturbances. Would benefit from geriatric psych to evaluate and adjust medications prior to returning to nursing facility. Labs stable this morning. Problems addressed as follows: Dementia with behavioral disturbances Acute toxic encephalopathy, resolved Alzheimer's dementia Hypercalcemia -Patient confused compared to baseline per family and nursing facility -Agitated overnight. Responded to nighttime Seroquel and Haldol. -Continue to hold Ativan due to concern for oversedation. -Continue memantine 5 mg nightly, donepezil 10 mg nightly, Seroquel 100 mg nightly. Resume Seroquel 25 mg in the morning -Therapy to evaluate in the morning due to falls --Patient would benefit from referral to geriatric psych for adjustments to medications and further management -Morning labs normal with kidney function BUN 17, creatinine 0.9. Electrolytes normal with magnesium 2.1, potassium 4.2. Calcium 11. Down from 11.2. Hemoglobin normal at 13. -Tolerating p.o. intake this morning Continue levothyroxine 50 mcg daily for hypothyroid, TSH acceptable at 0.4 Continue Lexapro 10 mg daily for anxiety Continue amlodipine 10 mg daily for hypertension Regular diet Full code Aspirin 325 mg daily
[2024-05-14 12:08] VITALS: BMI 25.0
[2024-05-14 15:36] LABS: Basophils % 1.1 % (0.1-2.0); Eosinophils # 0.1 K/mm3 (0.0-0.4); Eosinophils % 4.2 % (0.1-12.0); Hematocrit 36.4 % (37.0-47.0); Hemoglobin 12.8 g/dL (12.2-16.2); Lymphocytes # 1.1 K/mm3 (0.7-4.5); Lymphocytes % 34.9 % (10-50); Mean Corpuscular HGB Conc 35.1 g/dL (31.8-35.4); Mean Corpuscular Hemoglobin 31.1 pg (27.0-31.2); Mean Corpuscular Volume 88.7 fl (81-99); Mean Platelet Volume 9.7 fl (7.4-10.4); Monocytes # 0.3 K/mm3 (0.1-1.0); Monocytes % 8.6 % (1.7-9.3); Neutrophils # 1.6 K/mm3 (1.8-7.8); Neutrophils % 51.2 % (37.0-80.0); Platelet Count 98 K/mm3 (142-424); Red Cell Distribution Width 12.8 % (11.5-17.5); White Blood Count 3.1 K/mm3 (4.8-10.8)
[2024-05-14 15:57] VITALS: BP 93/50; PULSE 53; RESP 16; TEMP 36.6; O2SAT 94
[2024-05-14 16:06] LABS: Alanine Aminotransferase 19 U/L (12-78); Albumin/Globulin Ratio 1.3 (1.1-1.8); Alkaline Phosphatase 100 U/L (38-126); Anion Gap 9.8 mEq/L (5-15); Aspartate Amino Transferase 27 U/L (14-36); Bilirubin,Total 0.7 mg/dl (0.2-1.3); Blood Urea Nitrogen 18 mg/dl (7-17); Calcium 10.6 mg/dl (8.4-10.2); Carbon Dioxide 25 mmol/L (22.0-30.0); Chloride 112 mmol/L (98-107); Creatinine Clearance Estimated 49 mL/min (50-200); Estimated Glomerular Filt Rate 61 ml/min (>60); GFR (African American) 73 ML/MIN (>60); Globulin 2.4 g/dL (1.3-3.2); Glucose 146 mg/dl (74-100); Potassium 3.8 mmoL/L (3.5-5.1); Sodium 143 mmol/L (136-145); Total Protein,Serum 5.4 g/dl (6.3-8.2)
--- NOTE | 2024-05-14 17:11 | EXP.DC.SUM ---
General Admission date:: 05/13/24 Discharge date: 05/14/24 HPI HPI HPI: Ms. Chrissy joe is a 78-year-old female with progressive dementia over the past 5 years. She resides at [facility]. She presented via EMS due to concern for increased falls, and altered mental status. Has fallen multiple times in the past 2 to 3 days. Presents with her brother who helps give history. Patient's medications were recently adjusted with initiation of Ativan. Patient is hemodynamically stable. Workup with nonactionable labs. Patient unfortunately significantly confused and unsteady on her feet. Medicine was consulted for admission and evaluation by therapy. On arrival to the floor, patient is alert, knows her name. Does not know date of , time, place. Nonsensical responses to questions. Answers rambling. Does not know her brother's name. Pleasantly confused. Brother states she has been having worsening symptoms since initiation of patient's Ativan. No nausea, vomiting, shortness of breath, cough, fever, syncope. Patient normally ambulatory, feeds herself, needs help with ADLs but is functional. Has had increased urinary incontinence. Hospital Course Hospital Course Hospital Course: 78 female with progressive dementia who presents with what appears to be an acute worsening of her cognition/acute encephalopathy. Increased falling over the past few days. Family concern for toxic effect/side effect of medication. Discussed case with ER physician, workup in the ER with no acute findings but patient does appear altered. Unstable on her feet. Request admission for therapy evaluation and further management. I agreed to admit. Initially held her Ativan and Seroquel. Patient improved with her mobility. Has independently mobile at this time. Had sundowning episode overnight with increased agitation and aggression. Responded to resumption of Seroquel and one-time dose of Haldol. Improved interactions this morning. Pleasant and cooperative. Strong concern for dementia with behavioral disturbances. Would benefit from geriatric psych to evaluate and adjust medications prior to returning to nursing facility. Labs stable this morning. Problems addressed as follows: Dementia with behavioral disturbances Acute toxic encephalopathy, resolved Alzheimer's dementia Hypercalcemia -Patient confused compared to baseline per family and nursing facility. Ativan was held on admission along with her daytime doses of Seroquel. First night of admission she became more agitated and irritable. Improved in her mobility. Has been independently mobile. Resumed 100 mg of Seroquel on night of admission but remained agitated and verbally aggressive to staff. Necessitated 5 mg IM dose of Haldol due to risk for harm to self and staff. Slept well overnight. Improved mentation and pleasant disposition by morning. Been pleasant through the day. Continued memantine 5 mg nightly, donepezil 10 mg nightly, Seroquel 100 mg nightly. Resumed Seroquel 25 mg in the morning. Therapy evaluated patient due to risk of falls. Fairly stable on her feet. No falls during admission. Given patient's dementia with behavioral disturbances, she was referred to geriatric psych for further management. Graciously excepted by [facility] for further management. Mild hypercalcemia on admission. Calcium improved from 11.2-10.6 with 500 cc of LR along with oral fluids. No signs or concerns for infection at this time. Patient overall doing well. Kidney function and electrolytes stable. Continue levothyroxine 50 mcg daily for hypothyroid, TSH acceptable at 0.4 Continue Lexapro 10 mg daily for anxiety Continue amlodipine 10 mg daily for hypertension Total time spent on discharge 40 minutes in discussion with care team, documentation, chart review, and direct care with patient. Exam Data for Last 24 hours Vital signs and Labs for Last 24 Hours: Temp Pulse Resp BP Pulse Ox O2 Del Method 97.8 F 53 L 16 93/50 L 94 L Room Air 05/14/24 15:57 05/14/24 15:57 05/14/24 15:57 05/14/24 15:57 05/14/24 15:57 05/14/24 16:54 Laboratory Results - last 24 hr 05/14/24 05:52: WBC 3.1 L D, RBC 4.31, Hgb 13.4 D, Hct 38.6, MCV 89.6, MCH 31.0, MCHC 34.6, RDW 12.8, Plt Count 94 L D, MPV 9.2, Neut % (Auto) 50.2, Lymph % (Auto) 35.0, [place] % (Auto) 9.9 H, Eos % (Auto) 3.8, Baso % (Auto) 1.1, Neut # (Auto) 1.5 L, Lymph # (Auto) 1.1, [place] # (Auto) 0.3, Eos # (Auto) 0.1, Baso # (Auto) 0.0, Sodium 144, Potassium 4.2, Chloride 113 H, Carbon Dioxide 29, Anion Gap 6.2, BUN 17, Creatinine 0.90, Estimated Creat Clear 49, Estimated GFR 61, Est GFR ( Amer) 73, Glucose 92, Calcium 11.0 H, Magnesium 2.1, Total Bilirubin 1.0, AST 28, ALT 15, Alkaline Phosphatase 99, Total Protein 6.1 L, Albumin 3.3 L D, Globulin 2.8, Albumin/Globulin Ratio 1.2, TSH 0.40 L 05/14/24 15:28: WBC 3.1 L, RBC 4.10 L, Hgb 12.8, Hct 36.4 L, MCV 88.7, MCH 31.1, MCHC 35.1, RDW 12.8, Plt Count 98 L, MPV 9.7, Neut % (Auto) 51.2, Lymph % (Auto) 34.9, [place] % (Auto) 8.6, Eos % (Auto) 4.2, Baso % (Auto) 1.1, Neut # (Auto) 1.6 L, Lymph # (Auto) 1.1, [place] # (Auto) 0.3, Eos # (Auto) 0.1, Baso # (Auto) 0.0, Sodium 143, Potassium 3.8, Chloride 112 H, Carbon Dioxide 25, Anion Gap 9.8, BUN 18 H, Creatinine 0.90, Estimated Creat Clear 49, Estimated GFR 61, Est GFR ( Amer) 73, Glucose 146 H D, Calcium 10.6 H, Total Bilirubin 0.7, AST 27, ALT 19 D, Alkaline Phosphatase 100, Total Protein 5.4 L, Albumin 3.0 L, Globulin 2.4, Albumin/Globulin Ratio 1.3 I & O for Last 24 hours: Intake & Output 05/11/24 05/12/24 05/13/24 05/14/24 23:59 23:59 23:59 23:59 Intake Total 420 / 620 1680 / 1680 Output Total 500 / 500 Balance 420 / 620 1180 / 1180 Weight 65.402 kg 66.45 kg Constitutional Constitutional: no acute distress, average body habitus, chronically ill appearing and cooperative *Routine HEENT Exam Head: Present normocephalic Eye: Present EOMI and PERRL ENT: Present mucous membranes moist *Routine Neck Exam Neck: Present supple; Absent lymphadenopathy *Routine Respiratory Exam Respiratory: Present CTA bilaterally; Absent respiratory distress, rhonchi, wheezes or crackles *Routine Cardiovascular Exam Cardiovascular: Present RRR *Routine Abdominal Exam Abdominal: Present soft and normoactive bowel sounds; Absent tenderness *Routine Rectal Exam Patient deferred: visual exam *Routine Exam Patient deferred: external exam *Routine Extremities Exam Extremities: Absent cyanosis, clubbing or edema *Routine Skin Exam Skin: Present warm; Absent rash *Routine Neurological Exam Neurological: Present alert and altered mental status; Absent moving all extremities Comments: Oriented to name and year of , does not know where she is, answers nonsensically and tangentially to questions. Pleasant throughout the day with sundowning in the evening but increased agitation at night. Results Data Completed and Pending Labs on day of discharge: Labs from last 24 hours 05/14/24 05/14/24 15:28 05:52 WBC 3.1 L 3.1 L D RBC 4.10 L 4.31 Hgb 12.8 13.4 D Hct 36.4 L 38.6 MCV 88.7 89.6 MCH 31.1 31.0 MCHC 35.1 34.6 RDW 12.8 12.8 Plt Count 98 L 94 L D MPV 9.7 9.2 Neut % (Auto) 51.2 50.2 Lymph % (Auto) 34.9 35.0 [place] % (Auto) 8.6 9.9 H Eos % (Auto) 4.2 3.8 Baso % (Auto) 1.1 1.1 Neut # (Auto) 1.6 L 1.5 L Lymph # (Auto) 1.1 1.1 [place] # (Auto) 0.3 0.3 Eos # (Auto) 0.1 0.1 Baso # (Auto) 0.0 0.0 Sodium 143 144 Potassium 3.8 4.2 Chloride 112 H 113 H Carbon Dioxide 25 29 Anion Gap 9.8 6.2 BUN 18 H 17 Creatinine 0.90 0.90 Estimated Creat Clear 49 49 Estimated GFR 61 61 Est GFR ( Amer) 73 73 Glucose 146 H D 92 Calcium 10.6 H 11.0 H Magnesium 2.1 Total Bilirubin 0.7 1.0 AST 27 28 ALT 19 D 15 Alkaline Phosphatase 100 99 Total Protein 5.4 L 6.1 L Albumin 3.0 L 3.3 L D Globulin 2.4 2.8 Albumin/Globulin Ratio 1.3 1.2 TSH 0.40 L DS: Diagnosis Discharge Diagnosis (1) Dementia with behavioral disturbance: Status: Acute Code(s): F03.918 - Unspecified dementia, unspecified severity, with other behavioral disturbance (2) Acute encephalopathy: Status: Acute Code(s): G93.40 - Encephalopathy, unspecified (3) Anxiety: Status: Acute Code(s): F41.9 - Anxiety disorder, unspecified (4) Alzheimer disease: Status: Acute Code(s): G30.9 - Alzheimer's disease, unspecified; F02.80 - Dementia in other diseases classified elsewhere, unspecified severity, without behavioral disturbance, psychotic disturbance, mood disturbance, and anxiety (5) Coronary artery disease: Status: Acute Code(s): I25.10 - Atherosclerotic heart disease of [place] coronary artery without angina pectoris (6) Hypertension: Status: Acute Code(s): I10 - Essential (primary) hypertension (7) Hypothyroid: Status: Acute Code(s): E03.9 - Hypothyroidism, unspecified Meds Home Medications and Allergies Home Medications ?Medication ?Instructions ?Recorded ?Confirmed ?Type amlodipine 10 mg tablet 10 mg PO DAILY #90 tabs 03/22/24 05/13/24 Rx donepezil 10 mg tablet 10 mg PO HS #90 tabs 03/22/24 05/13/24 Rx escitalopram oxalate 10 mg tablet 10 mg PO DAILY #90 tabs 03/22/24 05/13/24 Rx (Lexapro) memantine 5 mg tablet 5 mg PO HS #90 tabs 03/22/24 05/13/24 Rx acetaminophen 325 mg tablet 650 mg PO Q6HP PRN Mild Pain 05/13/24 05/13/24 History (Scale Score 1-4) aspirin 325 mg tablet 325 mg PO DAILY 05/13/24 05/13/24 History ergocalciferol (vitamin D2) 1,250 1,250 mcg PO TU 05/13/24 05/13/24 History mcg (50,000 unit) capsule levothyroxine 50 mcg tablet 50 mcg PO DAILYDM 05/13/24 05/13/24 History ondansetron 4 mg disintegrating 4 mg PO Q6HP PRN Nausea And 05/13/24 05/13/24 History tablet Vomiting quetiapine 100 mg tablet (Seroquel) 100 mg PO HS 05/13/24 05/13/24 History quetiapine 25 mg tablet 25 mg PO DAILY 05/13/24 05/13/24 History quetiapine 50 mg tablet (Seroquel) 50 mg PO 1400 05/13/24 05/13/24 History sennosides 8.6 mg tablet (Senna 17.2 mg PO HSP PRN constipation 05/13/24 05/13/24 History Laxative) haloperidol lactate 5 mg/mL 5 mg IM Q12HP PRN Agitation #0 mL 05/14/24 Rx injection solution New Prescriptions to Start Prescriptions: Allergies Allergy/AdvReac Type Severity Reaction Status Date / Time Penicillins Allergy Unknown Verified 04/25/24 12:35 Discharge Plan Disposition Patient Disposition: Xfer Short-Term Hosp Discharge Order Discharge Orders: Discharge Order (Routine); Ordered 05/14/24 Ordered By: Eloy Carrero Follow up Plan Prescriptions/Medication Reconciliation: New haloperidol lactate 5 mg/mL Solution 5 mg IM Q12HP PRN (Reason: Agitation) Qty: 0 0RF Continued amlodipine 10 mg tablet 10 mg PO DAILY Qty: 90 3RF donepezil 10 mg tablet 10 mg PO HS Qty: 90 3RF escitalopram oxalate [Lexapro] 10 mg tablet 10 mg PO DAILY Qty: 90 3RF memantine 5 mg tablet 5 mg PO HS Qty: 90 3RF quetiapine [Seroquel] 100 mg Tablet 100 mg PO HS quetiapine [Seroquel] 50 mg Tablet 50 mg PO 1400 quetiapine 25 mg tablet 25 mg PO DAILY sennosides [Senna Laxative] 8.6 mg tablet 17.2 mg PO HSP PRN (Reason: constipation) acetaminophen 325 mg tablet 650 mg PO Q6HP PRN (Reason: Mild Pain (Scale Score 1-4)) levothyroxine 50 mcg tablet 50 mcg PO DAILYDM ergocalciferol (vitamin D2) 1,250 mcg (50,000 unit) capsule 1,250 mcg PO TU ondansetron 4 mg tablet,disintegrating 4 mg PO Q6HP PRN (Reason: Nausea And Vomiting) aspirin 325 mg Tablet 325 mg PO DAILY Discontinued lorazepam 1 mg Tablet 1 mg PO DAILY Problem Reconciliation Problems Reviewed?: Yes Patient Discharge Instructions ACTIVITY: Continue current activity DIET: continue same diet Patient Instructions: DI for Anxiety -- Adult, Encephalopathy Print Language: [place] Providers Primary Care Provider: Reggie Glover Admit Provider: Eloy Carrero Attending Provider: Eloy Carrero
--- NOTE | 2024-05-14 17:44 | PC.NURSE ---
report attempted to be called to RN at [facility] (charity). Charity stated she would call me back momentarily.
--- NOTE | 2024-05-14 18:15 | PC.NURSE ---
report called to Mallory @[facility] and answered all questions.
[2024-05-14 20:00] VITALS: PULSE 52; RESP 18; O2SAT 94
[2024-05-14] MEDS: MEMANTINE 10MG TABLET 5 MG PO (20:12)
[2024-05-14] MEDS: QUETIAPINE 100MG TABLET 100 MG PO (20:12)
[2024-05-14] MEDS: DONEPEZIL 10MG TAB 10 MG PO (20:12)
--- NOTE | 2024-05-14 20:29 | PC.NURSE ---
pt discharged off floor via EMS to [place] @20:29
--- NOTE | 2024-05-14 20:30 | PC.NURSE ---
EMS took patient off floor at this time for transfer to [facility].
== END 2024-05-14 20:30 | disposition short-term general hospital (02) ==
LOC: ER 10:20 → 2ND 11:53
PROVIDERS: Admitting Provider Internal Medicine Adolescent Medicine; Emergency Provider Student in an Organized Health Care Education/Training Program; PCP Internal Medicine; Visit Provider Internal Medicine Adolescent Medicine
DX: G92.8 Other toxic encephalopathy (principal); F41.9 Anxiety disorder, unspecified; G30.9 Alzheimer's disease, unspecified; F02.818 Dementia in other diseases classified elsewhere, unspecified severity, with other behavioral disturbance; I25.10 Atherosclerotic heart disease of native coronary artery without angina pectoris; I10 Essential (primary) hypertension; E03.9 Hypothyroidism, unspecified; R29.6 Repeated falls; E55.9 Vitamin D deficiency, unspecified; Z74.1 Need for assistance with personal care
CPT/HCPCS: 36415; 70450; 71045; 72125; 80053; 80307; 81001; 82140; 82803; 83735; 84443; 84484; 85025; 93005; 97162; 97166; 97530; 99291; G0378; J1630; J7120

== ENCOUNTER 2024-05-21 21:47 | Emergency (ER) | payer MEDICARE, MEDICAID, SELFPAY ==
[2024-05-21 21:53] VITALS: BP 124/57; PULSE 62; RESP 20; TEMP 36.7; O2SAT 95; BMI 23.8
--- NOTE | 2024-05-21 21:58 | PC.NURSE ---
Pt recently discharged from [facility] for altered mental status.
--- NOTE | 2024-05-21 22:00 | HMH.EDGENADL ---
Discharge Plan Disposition Patient Disposition: Xfer SNF Condition: Fair Prescriptions Prescriptions: No Action amlodipine 10 mg tablet 10 mg PO DAILY Qty: 90 3RF donepezil 10 mg tablet 10 mg PO HS Qty: 90 3RF escitalopram oxalate [Lexapro] 10 mg tablet 10 mg PO DAILY Qty: 90 3RF memantine 5 mg tablet 5 mg PO HS Qty: 90 3RF quetiapine [Seroquel] 100 mg Tablet 100 mg PO HS quetiapine [Seroquel] 50 mg Tablet 50 mg PO 1400 quetiapine 25 mg tablet 25 mg PO DAILY sennosides [Senna Laxative] 8.6 mg tablet 17.2 mg PO HSP PRN (Reason: constipation) acetaminophen 325 mg tablet 650 mg PO Q6HP PRN (Reason: Mild Pain (Scale Score 1-4)) levothyroxine 50 mcg tablet 50 mcg PO DAILYDM ergocalciferol (vitamin D2) 1,250 mcg (50,000 unit) capsule 1,250 mcg PO TU ondansetron 4 mg tablet,disintegrating 4 mg PO Q6HP PRN (Reason: Nausea And Vomiting) aspirin 325 mg Tablet 325 mg PO DAILY haloperidol lactate 5 mg/mL Solution 5 mg IM Q12HP PRN (Reason: Agitation) Qty: 0 0RF Referrals Follow up/Referrals: Provider,Referral, MD [Primary Care Provider] - See instructions Activity Restrictions/Add. Instructions Additional Instructions/Restrictions: You were evaluated in the emergency department today. At this time, home Depakote was administered as well as her home melatonin and as needed 25 mg dose of hydralazine. Psychiatry has prescribed her as needed hydroxyzine to take as needed for agitation. She should have 25 mg hydroxyzine q6hr PRN agitation. She also should take melatonin 5 mg at night. Patient remained pleasant throughout ED visit and is at her neurologic baseline according to medical record review and discussions with family. Ultimately, it was felt that she is appropriate for discharge back to the nursing facility. Please continue giving medications as prescribed. Follow-up closely with geriatric psychiatry as well as with primary care. Return to the emergency department for new or worsening symptoms Clinical Impressions Clinical Impression: Dementia with behavioral disturbance Instructions Patient Instructions: DI for Altered Mental Status Print Language Print Language: Turkmen Discharge ED Provider: Nancy Manjarrez General Adult HPI General Chief complaint: Altered Mental Status Stated complaint: AMS Time Seen by Provider: 05/21/24 21:49 Mode of Arrival: EMS Source of Information: Patient and EMS Limitations: Altered Mental Status Description of Symptoms (Recalled from ER Triage Doc. by RN): Pt became agitated at the ECF and EMS called Pt oriented to person only which the ECF states is her normal. Skin pink warm and dry REsp full and easy Speech clear. History of Present Illness HPI narrative: This patient is a 78-year-old female with a history of dementia with behavioral disturbance, CAD, depression, anxiety, chronic hepatitis C, hyperparathyroidism, hypertension presenting to the emergency department for evaluation with concern for agitation. According to nursing facility report, they called EMS because the patient was running up and down the halls, throwing and breaking ornaments, trying to get out of the nursing facility. She was very agitated and screaming, and they said that she was extremely aggressive. EMS arrived with the patient and noted that she was pleasant with normal vitals en route. She was conversational and cooperative. Upon arrival, patient is alert and oriented to self, but not place, time, or situation. According to my review of medical records, it appears this may be her baseline. This week she was admitted here 05/13/2024 with concern for similar issue and was subsequently transferred to [facility] for geriatric psych evaluation. According to nursing facility, she was just discharged back to their facility and she seems to be no better. I reviewed medical records from [facility] and noted that she was discharged from their facility today. It was that they were concerned that the patient was oversedated with Ativan and Haldol and was having falls relating to oversedation. In their facility, patient had been oriented to person only and had been doing well behaviorally. They noted that they felt she was appropriate for discharge home given that she appeared to be stable and at her baseline. Feels like she was started on Depakote for further management of behavioral issues, which was titrated up to 250 mg twice a day. They note that she tolerated the medication well which seems to help with the behavioral issues. I called and spoke with the nurse at the nursing facility who noted that she has not yet had any medications with them, as she just got back a few hours ago. Based on my review of records and conversation with them, it does not appear she got her evening dose of Depakote. They note that they were concerned for their safety as well as the safety of the residents in their facility, as she had been agitated since being dropped off and was very violent. Patient is alert and cooperative without complaints here. Related Data Home Medications ?Medication ?Instructions ?Recorded ?Confirmed acetaminophen 325 mg tablet 650 mg PO Q6HP PRN Mild Pain 05/13/24 05/13/24 (Scale Score 1-4) aspirin 325 mg tablet 325 mg PO DAILY 05/13/24 05/13/24 ergocalciferol (vitamin D2) 1,250 1,250 mcg PO TU 05/13/24 05/13/24 mcg (50,000 unit) capsule levothyroxine 50 mcg tablet 50 mcg PO DAILYDM 05/13/24 05/13/24 ondansetron 4 mg disintegrating 4 mg PO Q6HP PRN Nausea And 05/13/24 05/13/24 tablet Vomiting quetiapine 100 mg tablet (Seroquel) 100 mg PO HS 05/13/24 05/13/24 quetiapine 25 mg tablet 25 mg PO DAILY 05/13/24 05/13/24 quetiapine 50 mg tablet (Seroquel) 50 mg PO 1400 05/13/24 05/13/24 sennosides 8.6 mg tablet (Senna 17.2 mg PO HSP PRN constipation 05/13/24 05/13/24 Laxative) Previous Rx's ?Medication ?Instructions ?Recorded amlodipine 10 mg tablet 10 mg PO DAILY #90 tabs 03/22/24 donepezil 10 mg tablet 10 mg PO HS #90 tabs 03/22/24 escitalopram oxalate 10 mg tablet 10 mg PO DAILY #90 tabs 03/22/24 (Lexapro) memantine 5 mg tablet 5 mg PO HS #90 tabs 03/22/24 haloperidol lactate 5 mg/mL 5 mg IM Q12HP PRN Agitation #0 mL 05/14/24 injection solution Allergies Allergy/AdvReac Type Severity Reaction Status Date / Time Penicillins Allergy Unknown Other Verified 05/21/24 22:01 lorazepam (From Ativan) AdvReac Mild Agitated Verified 05/21/24 22:09 [facility] Disclaimer: The information contained in this section may have been updated after the patient was seen, as this information can be updated by other users. Medical History Localized swelling, mass and lump, left lower limb Gastro-esophageal reflux disease without esophagitis Depression Anxiety Chronic hepatitis C Alzheimer disease Hyperparathyroidism Vitamin D deficiency Edentulous Dementia Coronary artery disease History of tobacco use Hypertension Hypothyroid Hypercalcemia Pulmonary nodule 1 cm or greater in diameter Surgical History Presence of coronary angioplasty implant and graft History of coronary artery stent placement History of tonsillectomy History of delivery History of cholecystectomy Social History Smoking Status: Never smoker alcohol intake: former current occupational status: unemployed Travel in the last 8 weeks: None Other Medical History Have you received the Flu Vaccine for this season: No (N?A) Have you received the Pneumonia Vaccine: No (N?A) ROS Obtained: Yes All systems reviewed & no additional complaints except as documented Physical Exam General General appearance: alert and in no apparent distress Comment: Pleasant, cooperative. Alert and oriented to self only, which is her baseline. Head Head exam: atraumatic and normocephalic Eye Eye exam: Present normal appearance, PERRL and EOMI ENT ENT exam: Present normal exam, normal oropharynx, mucous membranes moist and normal external ear exam Neck Neck exam: Present normal inspection, full ROM and trachea midline; Absent tenderness Chest Chest inspection: Present normal inspection and symmetric chest wall rise; Absent tenderness Respiratory Respiratory exam: Present normal lung sounds bilaterally; Absent respiratory distress, wheezes, stridor or accessory muscle use Cardiovascular Cardiovascular exam: Present regular rate and normal rhythm Abdominal Exam Abdominal exam: Present soft; Absent distention, tenderness or guarding Extremities Exam Extremities exam: Present normal inspection, full ROM and normal capillary refill; Absent tenderness or edema Back Exam Back exam: Present normal inspection and full ROM; Absent tenderness Neurological Exam Neurological exam: Present alert, CN II-XII intact and normal gait; Absent oriented X3 or motor sensory deficit Psychiatric Psychiatric exam: Present normal affect and normal mood Skin Skin exam: Present warm and dry Medical Decision Making Medical Records Medical records reviewed: Yes I reviewed the patient's medical records. Screening: Per USPSTF and CDC recommendations, given the prevalence of disease in our region, it is our hospital?s policy to screen for HIV and viral Hepatitis for all patients aged 18 and over and those with ongoing risk factors. Reynaldo Inquiry Pt receiving controlled substance: No Vital Signs: 05/21/24 21:53 05/21/24 22:30 05/21/24 23:00 Temperature 98.0 F Temperature Source Oral Pulse Rate 67 68 Pulse Rate [Right Brachial] 62 Respiratory Rate 20 Blood Pressure 147/71 H 144/76 H Blood Pressure [Right Arm] 124/57 L Blood Pressure Mean 96 106 Blood Pressure Mean [Right Arm] 79 Blood Pressure Source [Right Arm] Automatic Cuff Blood Pressure Position [Right Arm] Supine 02 Sat by Pulse Oximetry 95 94 L 97 Oxygen Delivery Method Room Air Lab Data Lab results reviewed: Yes I reviewed the patient's lab results. Orders (Tests/Meds): ED MEDICATIONS Generic Name Dose Route Start Last Admin Trade Name Freq PRN Reason Stop Dose Admin Hydroxyzine Pamoate 25 mg 05/21/24 23:50 Hydroxyzine Pamoate 25mg Capsule PO 05/21/24 23:51 ONCE ONE Melatonin 5 mg 05/21/24 23:50 Melatonin 5mg Tablet PO 05/21/24 23:51 ONCE ONE Discontinued Medications Generic Name Dose Route Start Last Admin Trade Name Freq PRN Reason Stop Dose Admin Divalproex Sodium 250 mg 05/21/24 22:07 05/21/24 22:11 Divalproex 250mg (Delayed-Release) Tablet PO 05/21/24 22:08 250 mg ONCE ONE Administration ORDERS Category Date Time Status HIV (1&2) Antibody Rapid Stat Lab 05/21/24 21:57 Ordered Hep C Ab with Reflex to RNA Stat Lab 05/21/24 21:57 Ordered Medical Decision Narrative: In summary, this patient is a 78-year-old female presenting to the Emergency Department for evaluation of agitation and aggressive behaviors. Differential diagnoses considered include but are not limited to dementia with behavioral disturbance, medication issue. Ruling out the most morbid conditions drove assessment. It should be noted patient's history includes dementia, GERD, hypertension, hypothyroid, hyperparathyroidism which may or may not be at goal therapy. This complicates all aspects of care by increasing patient's risk for morbidity. I reviewed patient's past medical records and noted admission here for altered mental status, transfer to [facility] for behavioral disturbance in the setting of geriatric dementia, and admission at [facility] with discharge today as detailed in HPI. They noted no behavioral disturbance or issues there and the patient was well-controlled on Depakote. It does not appear she is gotten her evening dose of Depakote. On exam, the patient is pleasant, alert, conversational. She is alert and oriented to person but not place, time, or situation, which is her baseline. Exam is overall very reassuring without acute concerns and vitals are reassuring on cardiac telemetry. I had interactive discussions with the nursing facility and EMS. I also reviewed records from here in [place]. Ultimately, I feel that this is likely related to the patient's chronic dementia with behavioral disturbance and do not feel that emergent lab or imaging evaluation would be beneficial or plant changer at this time. I did call at 2209 to see if it would be possible to speak with geriatric psychiatry at [facility] to get further recommendations, though I do not have concerns about the patient's behavior at this time. I spoke with Dr. Solis in the ED at [facility] who advised we should be able to get ahold of Dr. Sung, psychiatrist who discharged the patient, if we go through behavioral health. They transferred me upstairs to behavioral health and I spoke with the nurse Hermila. Hermila advised me that she could not discuss the patient's care because of the HIPAA violation. I advised her that via EMTALA, I am looking to transfer the patient to higher level of care for geriatric psychiatry and not requesting any further records at this time. The reason I would like to transfer her there specifically is because she was just discharged from their service a few hours ago. She stated that she understands but cannot discuss the case because of HIPAA, however I asked if she could please get in touch with the psychiatry provider on-call for us. Awaiting callback as of 2229. On multiple subsequent reassessments, the patient is sitting upright and is alert and conversational. Her speech is tangential and does not make much sense, but she is redirectable. Family notes that this is not different than her baseline. Vitals remain normal on cardiac telemetry. She is eating and drinking and is very pleasant. I did give her her home Depakote, her as needed hydroxyzine, as well as her melatonin since she had not had her evening dose, as I feel this could be cause for increased agitation. I did not give her other medications here at this time. Ultimately given that she has remained at her baseline and is not agitated, I feel that she is appropriate for discharge back to the nursing facility. I recommend very close follow-up with geriatric psychiatry to make sure that she still tolerates these medications well and does not need any further dose adjustments. I also recommend close follow-up with primary care on an outpatient basis. If any new concerns develop, strict return precautions were given. Family and patient updated to plan of care as well as [facility] nursing facility. EMS was contacted to arrange transport back. Ultimately, patient was [facility] in [facility] condition. Critical Care Critical Care Time Critical Care Time: No
[2024-05-21] MEDS: DIVALPROEX 250MG (Delayed-Release) TABLET 250 MG PO (22:11)
[2024-05-21 22:30] VITALS: BP 147/71; PULSE 67; O2SAT 94
[2024-05-21 23:00] VITALS: BP 144/76; PULSE 68; O2SAT 97
[2024-05-22] MEDS: hydrOXYzine pamoate 25MG CAPSULE 25 MG PO
[2024-05-22] MEDS: MELATONIN 5MG TABLET 5 MG PO (00:05)
--- NOTE | 2024-05-22 00:07 | PC.NURSE ---
called report to [facility] and notified them that pt is being tranported back to them.
[2024-05-22 00:35] VITALS: BP 150/80; PULSE 78; RESP 16; TEMP 36.7
== END 2024-05-22 00:37 ==
PROVIDERS: Emergency Provider Emergency Medicine
DX: F03.918 Unspecified dementia, unspecified severity, with other behavioral disturbance (principal); R41.82 Altered mental status, unspecified
CPT/HCPCS: 99284

== ENCOUNTER 2024-09-02 09:31 | Emergency (ER) | payer MEDICARE, MEDICAID, SELFPAY ==
[2024-09-02 09:35] VITALS: BP 130/76; PULSE 57; RESP 14; O2SAT 97
--- NOTE | 2024-09-02 09:38 | ECG_ITS ---
APPROVED REPORT Exam: Resting ECG HR:69 bpm ECG Measurements Heart Rate 69 AXES ND 174 P 38 QRSd 132 QRS 7 QT 420 T -3 QTc 439 Conclusion SINUS RHYTHM RIGHT BUNDLE BRANCH BLOCK [120+ ms QRS DURATION, UPRIGHT V1, 40+ ms S IN I/aVL/V4/V5/V6] MODERATE T-WAVE ABNORMALITY, CONSIDER ANTEROLATERAL ISCHEMIA [-0.1+ mV T-WAVE IN V3-V6] ABNORMAL ECG UNCONFIRMED REPORT Electronically signed by : PRICILA WOODRUFF, 09/05/2024 05:57:09
--- NOTE | 2024-09-02 09:47 | PC.NURSE ---
in room talking with patient at this time.
[2024-09-02 09:49] VITALS: BP 130/76; PULSE 72; RESP 12; TEMP 36.8; O2SAT 97; BMI 26.4
--- NOTE | 2024-09-02 09:52 | CT_ITS ---
PROCEDURE INFORMATION: Exam: CT Cervical Spine Without Contrast Exam date and time: 09/02/2024 10:21 AM Age: 79 years old Clinical indication: Injury or trauma; Fall; Blunt trauma; Additional info: Fall, head trauma TECHNIQUE: Imaging protocol: Computed tomography of the cervical spine without contrast. Radiation optimization: All CT scans at this facility use at least one of these dose optimization techniques: automated exposure control; mA and/or kV adjustment per patient size (includes targeted exams where dose is matched to clinical indication); or iterative reconstruction. COMPARISON: CT CERVICAL SPINE WO CON 05/13/2024 11:28 AM FINDINGS: Bones: No acute fracture of the cervical spine. No subluxation or dislocation of the cervical spine. Anterolisthesis of C4 with respect to C5. Intervertebral disc space narrowing C3 through C7 may represent degenerative disc disease.. Anterior osteophyte formation C3 through C7. Posterior osteophyte formation C3 through C7. Degenerative changes in the facets at multiple levels. Degenerative changes at C1/C2 Lungs: Lung apices are normal. Thyroid: The thyroid is unremarkable Soft tissues: Unremarkable. IMPRESSION: 1. No acute fracture of the cervical spine. 2. No subluxation or dislocation of the cervical spine. 3. Intervertebral disc space narrowing C3 through C7 may represent degenerative disc disease..
--- NOTE | 2024-09-02 09:52 | CT_ITS ---
PROCEDURE INFORMATION: Exam: CT Head Without Contrast Exam date and time: 09/02/2024 9:58 AM Age: 79 years old Clinical indication: Injury or trauma; Fall; Blunt trauma (contusions or hematomas); Additional info: Fall, head trauma TECHNIQUE: Imaging protocol: Computed tomography of the head without contrast. Radiation optimization: All CT scans at this facility use at least one of these dose optimization techniques: automated exposure control; mA and/or kV adjustment per patient size (includes targeted exams where dose is matched to clinical indication); or iterative reconstruction. COMPARISON: CT HEAD/BRAIN WO CON 05/13/2024 11:28 AM FINDINGS: Brain: No acute intracranial hemorrhage.. There is moderate diffuse heterogeneity of the white matter attenuation, consistent with chronic white matter ischemic changes. Moderate cerebral atrophy Cerebral ventricles: No ventriculomegaly. Paranasal sinuses: There is nonspecific fluid within the ethmoid sinuses. Mastoid air cells: Visualized mastoid air cells are well aerated. Bones: Unremarkable. No acute fracture. Soft tissues: Unremarkable. IMPRESSION: No acute intracranial hemorrhage..
--- NOTE | 2024-09-02 09:54 | XR_ITS ---
PROCEDURE INFORMATION: Exam: XR Chest Exam date and time: 09/02/2024 10:23 AM Age: 79 years old Clinical indication: Injury or trauma; Fall; Blunt trauma (contusions or hematomas) TECHNIQUE: Imaging protocol: Radiologic exam of the chest. Views: 1 view. COMPARISON: CT CERVICAL SPINE WO CON 09/02/2024 10:21 AM FINDINGS: Lungs: No focal consolidation.. Again noted is 14 mm calcified granuloma in the right lung base. Pleural spaces: Unremarkable. No pleural effusion. No pneumothorax. Heart/Mediastinum: Cardiomegaly Bones/joints: Unremarkable. IMPRESSION: No focal consolidation..
--- NOTE | 2024-09-02 09:54 | XR_ITS ---
PROCEDURE INFORMATION: Exam: XR Pelvis Exam date and time: 09/02/2024 10:23 AM Age: 79 years old Clinical indication: Injury or trauma; Fall; Blunt trauma (contusions or hematomas); Does not apply; Pelvic region TECHNIQUE: Imaging protocol: Radiologic exam of the pelvis. Views: 1 or 2 view. COMPARISON: No relevant prior studies available. FINDINGS: Bones/joints: Degenerative changes in both hips and sacroiliac joints and lumbar spine. There is no evidence of acute fracture.There is no evidence of malalignment or dislocation. Soft tissues: Unremarkable. IMPRESSION: There is no evidence of acute fracture.There is no evidence of malalignment or dislocation.
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
--- NOTE | 2024-09-02 09:57 | PC.NURSE ---
I notified respiratory that there is a green top in lab for a VBG
[2024-09-02 10:00] VITALS: BP 109/61; PULSE 70; RESP 15; O2SAT 97
[2024-09-02 10:02] LABS: Eosinophils # 0.1 K/mm3 (0.0-0.4); Eosinophils % 3.8 % (0.1-12.0); Hematocrit 37.9 % (37.0-47.0); Hemoglobin 12.6 g/dL (12.2-16.2); Lymphocytes # 0.8 K/mm3 (0.7-4.5); Lymphocytes % 26.5 % (10-50); Mean Corpuscular HGB Conc 33.2 g/dL (31.8-35.4); Mean Corpuscular Hemoglobin 30.9 pg (27.0-31.2); Mean Corpuscular Volume 92.9 fl (81-99); Mean Platelet Volume 10.8 fl (7.4-10.4); Monocytes # 0.3 K/mm3 (0.1-1.0); Monocytes % 10.8 % (1.7-9.3); Neutrophils # 1.6 K/mm3 (1.8-7.8); Neutrophils % 56.9 % (37.0-80.0); Platelet Count 88 K/mm3 (142-424); Red Blood Count 4.08 M/mm3 (4.20-5.40); Red Cell Distribution Width 12.6 % (11.5-17.5); White Blood Count 2.9 K/mm3 (4.8-10.8)
[2024-09-02 10:03] LABS: Lactate Venous 1.4 mmol/L (0.4-2.0); VBG Base Excess -4.5 mmol/L (-2.4-2.3); VBG HCO3 21.2 mmol/L (23-30); VBG Oxygen Saturation 75.9 % (50-70); VBG PH 7.34 mmol/L (7.31-7.41); VBG PO2 42.5 mmol/L (28-40); VBG Total CO2 22.5 mmol/L (23-27)
[2024-09-02 10:08] LABS: Albumin Level 3.8 g/dl (3.5-5.0); Chloride 113 mmol/L (98-107); INR 1.07 (0.9-1.1); Potassium 3.4 mmoL/L (3.5-5.1); Prothrombin Time 11.9 seconds (10.1-12.5); Sodium 143 mmol/L (136-145)
[2024-09-02 10:11] LABS: Alanine Aminotransferase 27 U/L (12-78); Albumin/Globulin Ratio 1.4 (1.1-1.8); Alkaline Phosphatase 97 U/L (38-126); Anion Gap 7.4 mEq/L (5-15); Aspartate Amino Transferase 33 U/L (14-36); Bilirubin,Total 0.9 mg/dl (0.2-1.3); Blood Urea Nitrogen 13 mg/dl (7-17); Carbon Dioxide 26 mmol/L (22.0-30.0); Creatinine Clearance Estimated 49 mL/min (50-200); Estimated Glomerular Filt Rate 69 ml/min (>60); GFR (African American) 84 ML/MIN (>60); Globulin 2.7 g/dL (1.3-3.2); Lipase 105 U/L (23-300); Total Protein,Serum 6.5 g/dl (6.3-8.2)
[2024-09-02 10:12] LABS: Calcium 10.4 mg/dl (8.4-10.2); Glucose 95 mg/dl (74-100)
--- NOTE | 2024-09-02 10:16 | PC.NURSE ---
pt is going to ct via stretcher
[2024-09-02 10:28] LABS: Troponin I < 0.01 ng/ml (0.00-0.034)
[2024-09-02 11:00] VITALS: BP 116/64; PULSE 77; RESP 12; O2SAT 96
[2024-09-02 11:30] VITALS: BP 138/78; PULSE 71; RESP 16; O2SAT 95
[2024-09-02 11:30] LABS: HIV Combo NEGATIVE (Negative)
[2024-09-02 11:38] LABS: Hepatitis C Ab Qual. W/ RFX NEGATIVE (Negative)
[2024-09-02 12:14] VITALS: BP 129/71; PULSE 89; RESP 18; TEMP 36.5; O2SAT 94
--- NOTE | 2024-09-02 12:14 | PC.NURSE ---
report called to Lu at [facility]
--- NOTE | 2024-09-02 12:18 | PC.NURSE ---
EMS called for transport
== END 2024-09-02 12:37 | disposition home or self-care (01) ==
PROVIDERS: Emergency Provider Student in an Organized Health Care Education/Training Program
DX: S09.90XA Unspecified injury of head, initial encounter (principal); W50.0XXA Accidental hit or strike by another person, initial encounter
CPT/HCPCS: 70450; 71045; 72125; 72170; 80053; 82803; 83690; 84484; 85025; 85610; 86803; 87389; 93005; 99284